=== PATIENT | female | born 2000 | race Caucasian/White ===

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

== ENCOUNTER 2019-07-08 21:29 | Emergency (ER) | payer BC, OTHER ==
[~2019-07-08] VITALS: Ht 167.6 cm; Wt 90.7 kg
--- NOTE | 2019-07-08 21:45 | NUR ---
Patient presents to ER for ear pain, patient states she has had on/off ear pain to Rt ear since 06/19/2019 and Lt ear pain since 06/27/19. Patient states it is getting worse today. Patient in no acute distress. Awaiting eval by Dr. Jack.
--- NOTE | 2019-07-08 22:18 | NUR ---
fingerstick 98, Dr. Jack made aware.
--- NOTE | 2019-07-08 22:52 | NUR ---
Per Dr. Jack, patient is stable for discharge. DC instructions and prescriptions given and reviewed with patient. Verbalized understanding. Left ER in stable condition. Patient ambulated with steady gait.
== END 2019-07-08 22:52 | disposition home or self-care (01) ==
LOC: ER 21:34
DX: H65.91 Unspecified nonsuppurative otitis media, right ear (principal); H60.92 Unspecified otitis externa, left ear; H91.93 Unspecified hearing loss, bilateral
CPT/HCPCS: A4663

== ENCOUNTER 2021-02-11 08:16 | Outpatient (CLI) | payer BC, OTHER ==
[2021-02-11 08:41] LABS: HEMATOCRIT 39.8 % (31.2-41.9); MEAN CORPUSCULAR HEMOGLOBIN 31.1 uug (24.7-32.8); MEAN CORPUSCULAR VOLUME 91.4 fL (75.5-95.3); PLATELET COUNT (AUTO) 246 K/uL (179-408)
[2021-02-12 05:07] LABS: RUBELLA AB, IgG 5.71 index (Immune >0.99)
[2021-02-12 13:06] LABS: HEPATITIS B SURFACE AG Negative (Negative)
== END 2021-02-11 23:59 | disposition home or self-care (01) ==
LOC: LAB 08:16
PROVIDERS: ATTEND Obstetrics & Gynecology
DX: N91.0 Primary amenorrhea (principal); Q99.2 Fragile X chromosome; Z33.1 Pregnant state, incidental; Z20.2 Contact with and (suspected) exposure to infections with a predominantly sexual mode of transmission; Z31.430 Encounter of female for testing for genetic disease carrier status for procreative management
CPT/HCPCS: 36415; 84443; 85025; 86592; 86762; 86803; 86850; 86900; 86901; 87340; 87806

== ENCOUNTER → 2021-04-26 | Outpatient (CLI) | payer BC, OTHER ==
[2021-04-26 09:35] LABS: MEAN CORPUSCULAR HEMOGLOBIN 31.6 uug (24.7-32.8); MEAN CORPUSCULAR VOLUME 92.6 fL (75.5-95.3); PLATELET COUNT (AUTO) 286 K/uL (179-408)
== END | disposition home or self-care (01) ==
LOC: LAB 09:05
PROVIDERS: ATTEND Obstetrics & Gynecology
DX: Z33.1 Pregnant state, incidental (principal)
CPT/HCPCS: 85025